=== PATIENT | female | born 1945 | race Caucasian/White ===

== ENCOUNTER 2024-04-17 06:28 | Day surgery (SDC) | payer OTHER ==
[2024-04-16 10:49] VITALS: BMI 33.4
[2024-04-17 07:45] VITALS: RESP 16; TEMP 96.9
[2024-04-17] MEDS ORDERED: MIDAZOLAM HCL 2 MG/2 ML SINGLE DOSE VIAL ONE (08:08)
[2024-04-17] MEDS ORDERED: ceFAZolin SODIUM 1 GM VIAL ONE (08:08)
[2024-04-17] MEDS ORDERED: PROPOFOL 20 ML ONE (08:08)
[2024-04-17] MEDS ORDERED: LIDOCAINE HCL 2% (20ML MULTI-DOSE VIAL) ONE (08:12)
[2024-04-17] MEDS ORDERED: BUPIVACAINE HCL/PF 0.5% (5MG/ML) 10 ML VIAL ONE (08:12)
[2024-04-17] MEDS ORDERED: KETOROLAC TROMETHAMINE 30 MG/1 ML VIAL ONE (09:13)
[2024-04-17] MEDS ORDERED: DEXAMETHASONE SOD PHOSPHATE 4 MG/1 ML VIAL ONE (09:13)
[2024-04-17] MEDS ORDERED: ONDANSETRON 4 MG/2 ML VIAL ONE (09:13)
[2024-04-17 12:17] VITALS: BP 147/72; PULSE 72
== END 2024-04-17 11:10 | disposition home or self-care (01) ==
LOC: FASU 06:28
PROVIDERS: ATTEND Podiatrist
PROC: 0SRP0JZ Replacement of Right Toe Phalangeal Joint with Synthetic Substitute, Open Approach (ICD-10-PCS; principal; 2024-04-17 09:16)
DX: M20.41 Other hammer toe(s) (acquired), right foot (principal)
CPT/HCPCS: 73630-TC-RT-FY; 88305-TC; 88311-TC